=== PATIENT | female | born 1955 | race Caucasian/White ===

== ENCOUNTER 2018-05-05 11:43 | Outpatient (CLI) | payer BC | END 2018-05-05 11:44 | disposition home or self-care (01) | LOC: BICMAMMO 11:43 | PROVIDERS: ATTEND Family Medicine | DX: Z12.31 Encounter for screening mammogram for malignant neoplasm of breast (principal); R92.1 Mammographic calcification found on diagnostic imaging of breast; Z85.3 Personal history of malignant neoplasm of breast; Z80.3 Family history of malignant neoplasm of breast; Z98.890 Other specified postprocedural states | CPT/HCPCS: 77063; 77067 ==

== ENCOUNTER 2019-05-21 07:51 | Outpatient (CLI) | payer BC, OTHER ==
--- NOTE | 2019-05-21 08:38 | MMO ---
Bilateral MAMMO Bilat Screen [facility]. CLINICAL HISTORY: Patient is 64 years old and is seen for screening. The patient has the following family history of breast cancer: 2 sisters. The patient has a history of malignant (generic) in the left breast at age 47. The patient has a history of left Lumpectomy at age 47. VIEWS: The views performed were: bilateral craniocaudal with tomosynthesis and bilateral mediolateral oblique with tomosynthesis. FILMS COMPARED: The present examination has been compared to prior imaging studies performed at [facility] on 10/20/2014, 11/29/2015, 01/27/2017 and 05/05/2018. This study has been interpreted with the assistance of computer-aided detection. MAMMOGRAM FINDINGS: There are scattered fibroglandular densities. Finding 1: There are stable benign appearing calcifications seen in both breasts. Finding 2: There are stable post operative changes seen in the left breast. There are no suspicious masses, suspicious calcifications, or new areas of architectural distortion. IMPRESSION: THERE IS NO MAMMOGRAPHIC EVIDENCE OF MALIGNANCY. A ROUTINE FOLLOW-UP MAMMOGRAM IN 1 YEAR IS RECOMMENDED. THE RESULTS OF THIS EXAM WERE SENT TO THE PATIENT. ACR BI-RADS Category 2 - Benign finding MAMMOGRAPHY NOTE: 1. A negative mammogram report should not delay a biopsy if a dominant of clinically suspicious mass is present. 2. Approximately 10% to 15% of breast cancers are not detected by mammography. 3. Adenosis and dense breasts may obscure an underlying neoplasm. Reported by: YAHAIRA LITTLE MD Electonically Signed: [id number]
== END 2019-05-21 07:52 | disposition home or self-care (01) ==
LOC: BICMAMMO 07:51
PROVIDERS: ATTEND Family Medicine
DX: Z12.31 Encounter for screening mammogram for malignant neoplasm of breast (principal); Z85.3 Personal history of malignant neoplasm of breast; Z80.3 Family history of malignant neoplasm of breast
CPT/HCPCS: 77063; 77067

== ENCOUNTER 2020-05-23 07:47 | Outpatient (CLI) | payer BC ==
--- NOTE | 2020-05-23 08:22 | MMO ---
Bilateral MAMMO Bilat Screen [facility]. CLINICAL HISTORY: Patient is 65 years old and is seen for screening. The patient has the following family history of breast cancer: 2 sisters. The patient has a history of malignant (generic) in the left breast at age 47. The patient has a history of left Lumpectomy at age 47. VIEWS: The views performed were: bilateral craniocaudal with tomosynthesis and bilateral mediolateral oblique with tomosynthesis. FILMS COMPARED: The present examination has been compared to prior imaging studies performed at [facility] on 11/29/2015, 01/27/2017, 05/05/2018 and 05/21/2019. This study has been interpreted with the assistance of computer-aided detection. MAMMOGRAM FINDINGS: The breasts are almost entirely fat. There is a new 10 mm mass density posterior upper outer right breast. In the left breast, there are no suspicious masses, calcifications or areas of architectural distortion. IMPRESSION: FINDING IN THE RIGHT BREAST REQUIRES ADDITIONAL EVALUATION. ADDITIONAL IMAGING. THE RESULTS OF THIS EXAM WERE SENT TO THE PATIENT. ACR BI-RADS Category 0 - Incomplete: Need additional imaging evaluation. [facility] will notify the patient of the need for additional imaging services. MAMMOGRAPHY NOTE: 1. A negative mammogram report should not delay a biopsy if a dominant of clinically suspicious mass is present. 2. Approximately 10% to 15% of breast cancers are not detected by mammography. 3. Adenosis and dense breasts may obscure an underlying neoplasm. Reported by: LIS TODD MD Electonically Signed: [id number]
== END 2020-05-23 07:48 | disposition home or self-care (01) ==
LOC: BICMAMMO 07:47
PROVIDERS: ATTEND Family Medicine
DX: Z08 Encounter for follow-up examination after completed treatment for malignant neoplasm (principal); Z85.3 Personal history of malignant neoplasm of breast
CPT/HCPCS: 77063; 77067

== ENCOUNTER 2020-05-29 07:55 | Outpatient (CLI) | payer BC ==
--- NOTE | 2020-05-29 08:42 | ULT ---
RIGHT BREAST ULTRASOUND: Date: 05/29/2020 HISTORY: Abnormal mammogram of 05/23/2020. Right breast mass. FINDINGS: Sonographic evaluation of the right upper outer breast demonstrates a 1.0 cm hypoechoic solid mass at the 11 o'clock position, 8.0 cm from the nipple, corresponding to the mammographic finding. IMPRESSION: BI-RADS Category 4 - Suspicious abnormality. Ultrasound-guided biopsy is recommended. Discussed in person with the patient at 0820 hours and over the telephone with Dr. Nicanor Mcadams's Eli [facility], at 0826 hours. POS: OFF
--- NOTE | 2020-05-29 09:09 | ULT ---
Exam: Ultrasound guided right breast biopsy HISTORY: Past medical history of left breast cancer. New mass noted on mammography. COMPARISON: Bilateral screening mammogram 2019 2019 FINDINGS: Successful right breast biopsy with ultrasound guidance. A total 4, 14-gauge core biopsy samples were obtained. Samples were placed directly in formalin. Postbiopsy clip was applied. Postbiopsy mammogram demonstrates appropriate clip position TECHNIQUE: Consent obtained to perform a right breast ultrasound guided biopsy. Right breast was prep ped and draped in a sterile fashion. 1% lidocaine, buffered with sodium bicarbonate was used for local anesthesia. Under sonographic guidance, 14-gauge biopsy needle was advanced to the right breast . Total 4 separate 14-gauge core biopsy samples were obtained and placed directly in formalin. Postbiopsy clip was deployed. There are no immediate or postprocedure complications. Postprocedure ma mmogram demonstrates appropriate clip position with associated postbiopsy changes. IMPRESSION: Successful right breast biopsy under ultrasound guidance. Final pathologic diagnosis is p ending
--- NOTE | 2020-05-29 10:23 | MMO ---
FILMS COMPARED: The present examination has been compared to prior imaging studies performed at [facility] on 05/05/2018, 05/21/2019, 05/23/2020 and 05/29/2020. MAMMOGRAM FINDINGS: There is a mass with associated biopsy clip seen in the right breast. IMPRESSION: MASS IN THE RIGHT BREAST IS CONFIRMED UTILIZING POST PROCEDURE MAMMOGRAM. Reported by: ABDOUL CALDWELL MD Electonically Signed: [id number]
== END 2020-05-29 07:56 | disposition home or self-care (01) ==
LOC: BICULT 07:55
PROVIDERS: ATTEND Family Medicine
DX: C50.411 Malignant neoplasm of upper-outer quadrant of right female breast (principal)
CPT/HCPCS: 19083; 88305; 88341; 88342

== ENCOUNTER 2020-06-08 12:20 | Outpatient (CLI) | payer BC ==
[2020-06-08 19:02] LABS: #Basophils 0.1 10x3/uL (0.0-0.2); #Eosinphils 0.4 10x3/uL (0.0-0.5); #Monocytes 0.8 10x3/uL (0.0-1.1); #Neutrophils 5.6 10x3/uL (1.5-8.4); %Basophils 0.8 % (0.0-2.0); %Eosinophils 4.1 % (0.0-6.0); %Monocytes 9.2 % (0.0-10.0); %Neutrophils 64.6 % (40.0-75.0); Mean Corpuscular HGB CONC 33.2 G/DL (32.0-36.0); Mean Corpuscular Hemoglobin 29.1 PG (27.0-33.0); Mean Corpuscular Volume 87.7 fl (80.0-100.0); Mean Platelet Volume 9.8 fl (7.4-10.4); Platelet Count 358 10x3/uL (130-400); RBC Distribution Width 13.5 % (11.5-14.5); Red Blood Cell (RBC) Count 4.46 10x6/uL (3.90-5.20); White Blood Cell (WBC) Count 8.6 10x3/uL (4.5-11.0)
[2020-06-08 19:15] LABS: Anion Gap 14 mmol/L (10-20); BUN (Urea Nitrogen) 17 mg/dL (9.8-20.1); Calc. Creatinine Clearance 0 mL/min (70-130); Calcium 10.5 mg/dL (7.8-10.44); Carbon Dioxide 24 mmol/L (23-31); Chloride 102 mmol/L (98-107); Estimated GFR-MDRD 71; Glucose 88 mg/dL (80-115); Potassium 4.3 mmol/L (3.5-5.1); Sodium 136 mmol/L (136-145)
[2020-06-09 15:25] LABS: SARS-CoV-2 MS2 Positive; SARS-CoV-2 N Gene Negative; SARS-CoV-2 S Gene Negative; SARS-CoV-2 by NAA Not Detected (NotDetected); SARS-CoV-2 orf1ab Negative
--- NOTE | 2020-06-11 20:54 | EKG ---
Test Reason : Blood Pressure : / mmHG Vent. Rate : 071 BPM Atrial Rate : 071 BPM P-R Int : 120 ms QRS Dur : 084 ms QT Int : 396 ms P-R-T Axes : 071 052 063 degrees QTc Int : 430 ms Normal sinus rhythm Normal ECG No previous ECGs available Confirmed by Julieta CASILLAS ([id number]) on 06/11/2020 8:54:21 PM Referred By: DR MCKINLEY Confirmed By:Julieta CASILLAS
== END 2020-06-08 12:21 | disposition home or self-care (01) ==
LOC: LABBT 12:20
PROVIDERS: ATTEND Specialist
DX: Z01.818 Encounter for other preprocedural examination (principal); Z20.828 Contact with and (suspected) exposure to other viral communicable diseases; C50.211 Malignant neoplasm of upper-inner quadrant of right female breast
CPT/HCPCS: 80048; 85025; 87635; 93005; 93010; U0003

== ENCOUNTER 2020-06-12 06:53 | Observation (INO) | payer BC ==
[2020-06-09 15:58] VITALS: BMI 30.8
--- NOTE | 2020-06-12 08:53 | NM ---
LYMPHOSCINTIGRAPHY RIGHT BREAST: DATE: 06/12/2020 : 65-year-old female with malignant neoplasm of upper outer quadrant of right female breast. TECHNIQUE: Signed informed consent obtained. Alcohol swabbing four-quadrant right periareolar distribution. Usin g 30-gauge needle, buffered lidocaine was applied to those 4 quadrants. Next, using 4 separate 30-gauge needles in 4 separate tuberculin syringes, a total of 0.4 mCi of technetium 99m sulfur collo id was injected into those same 4 periareolar quadrants. Immediate anterior and lateral scintigraphic images obtained of the chest. Patient tolerated procedure well. No complications. FINDINGS: There is uptake in sentinel right lymph node, plus additional right axillary and internal mammary lym ph nodes.. IMPRESSION: Successful right breast lymphoscintigraphy
[2020-06-12] MEDS ORDERED: Isosulfan Blue 50 MG/5 ML VIAL ONE (10:20)
[2020-06-12] MEDS ORDERED: Bupivacaine 0.25% HCL 30 ML VIAL ONE (10:20)
[2020-06-12] MEDS ORDERED: Lidocaine 1% w/Epinephrine 1:100K 20 ML VIAL ONE (10:20)
[2020-06-12] MEDS ORDERED: Fentanyl 100 MCG/2 ML VIAL ONE (11:01)
[2020-06-12] MEDS ORDERED: SUGAMMADEX SODIUM 500 MG/5 ML VIAL ONE (11:02)
[2020-06-12] MEDS ORDERED: HYDROmorphone 0.5 MG/0.5 ML SYRINGE ONE (11:02)
[2020-06-12] MEDS ORDERED: Acetaminophen 500 MG TAB ONE (11:12)
[2020-06-12] MEDS ORDERED: Ketorolac Tromethamine 30 MG/ML VIAL ONE (11:12)
[2020-06-12] MEDS ORDERED: PROPOFOL 200 MG/20 ML VIAL ONE (12:13)
[2020-06-12] MEDS ORDERED: Dexamethasone 20 MG/5 ML VIAL ONE (12:13)
[2020-06-12] MEDS ORDERED: EPHEDRINE 25 MG/5 ML SYRINGE ONE (12:13)
[2020-06-12] MEDS ORDERED: Glycopyrrolate 0.2 MG/ML 5 ML SYRINGE ONE (12:13)
[2020-06-12] MEDS ORDERED: PHENYLEPHRINE-NS 100 MCG/ML 10 ML SYRINGE ONE (12:13)
[2020-06-12] MEDS ORDERED: Ondansetron PF 4 MG/2 ML Vial ONE (12:13)
[2020-06-12] MEDS ORDERED: Lidocaine 1% PF 5 ML VIAL ONE (12:13)
[2020-06-12] MEDS ORDERED: PACU-Morphine 4MG/ML VIAL SLOW IVP PRN (16:08)
[2020-06-12] MEDS ORDERED: Promethazine HCl 25 MG/ML VIAL IM PRN ×2 (16:08→17:29)
[2020-06-12] MEDS ORDERED: Ondansetron HCl/PF 4 MG/2 ML Vial IVP PRN (16:08)
[2020-06-12] MEDS ORDERED: Promethazine HCl 25 MG/ML VIAL SLOW IVP PRN (16:08)
[2020-06-12] MEDS ORDERED: Meperidine HCl/PF 25 MG/ML VIAL SLOW IVP PRN (16:08)
[2020-06-12] MEDS ORDERED: Morphine Sulfate 2 MG/ML SYRINGE SLOW IVP PRN (16:08)
[2020-06-12] MEDS ORDERED: HYDROmorphone 2 MG/ML VIAL SLOW IVP PRN (16:08)
[2020-06-12] MEDS ORDERED: Morphine 2 MG/ML VIAL SLOW IVP PRN (17:29)
[2020-06-12] MEDS ORDERED: Morphine 4 MG/ML VIAL SLOW IVP PRN (17:29)
[2020-06-12] MEDS ORDERED: Dextrose 5% in Water 1,000 ML IV PRN (17:29)
[2020-06-12] MEDS ORDERED: Ondansetron PF 4 MG/2 ML Vial IVP PRN (17:29)
[2020-06-12] MEDS ORDERED: hydrALAZINE 20 MG/ML VIAL SLOW IVP PRN (17:29)
[2020-06-12] MEDS ORDERED: Dextrose 50% Abboject 50 ML SYRINGE SLOW IVP PRN (17:29)
[2020-06-12] MEDS ORDERED: HYDROcodone/Acetaminophen 7.5/325 mg Tablet PO PRN ×2 (17:29)
[2020-06-12] MEDS: D5 1/2 NS w/20 mEq KCL 1,000 ML IV SCH (18:09)
[2020-06-12] MEDS ORDERED: Acetaminophen 500 MG TAB PO PRN (21:21)
[2020-06-12] MEDS: Famotidine 20 MG TAB PO SCH (21:35)
[2020-06-13 05:33] LABS: #Lymphocytes 0.9 thou/uL (1.20-3.40); #Neutrophils 12.2 thou/uL (1.40-6.50); %Eosinophils 0.1 % (0.0-10.0); %Lymphocytes 6.3 % (21.0-51.0); %Monocytes 6.8 % (0.0-10.0); %Neutrophils 86.8 % (42.0-75.0); Hemoglobin 10.6 g/dL (12.0-16.0); Mean Corpuscular HGB CONC 32.9 g/dL (32.0-36.0); Mean Corpuscular Hemoglobin 30.1 pg (27.0-31.0); Mean Corpuscular Volume 91.6 fL (78.0-98.0); Mean Platelet Volume 7.3 fL (7.4-10.4); Platelet Count 286 thou/uL (130-400); Red Blood Cell (RBC) Count 3.52 mill/uL (4.20-5.40); White Blood Cell (WBC) Count 14.1 thou/uL (4.8-10.8)
[2020-06-13 05:55] LABS: Anion Gap 10 mmol/L (10-20); BUN (Urea Nitrogen) 14 mg/dL (9.8-20.1); Calc. Creatinine Clearance 96 mL/min (70-130); Calcium 9.4 mg/dL (7.8-10.44); Carbon Dioxide 23 mmol/L (23-31); Chloride 105 mmol/L (98-107); Estimated GFR-MDRD 78; Glucose 187 mg/dL (80-115); Potassium 4.4 mmol/L (3.5-5.1); Sodium 134 mmol/L (136-145)
[2020-06-13] MEDS: Famotidine 20 MG TAB PO SCH (07:58)
[2020-06-13] MEDS: D5 1/2 NS w/20 mEq KCL 1,000 ML IV SCH (07:59)
[2020-06-13 08:20] VITALS: BP 99/62; TEMP 97.7
[2020-06-13] MEDS ORDERED: Venlafaxine HCl XR 75 MG CAP PO SCH (09:00)
[2020-06-13] MEDS ORDERED: Prevnar 13-Val Conj/PF 0.5 ML SYRINGE IM ONE (09:00)
--- NOTE | 2020-06-14 14:54 | OP ---
DATE OF PROCEDURE: 06/12/2020 PREOPERATIVE DIAGNOSES: Right breast cancer, history of prior left breast cancer, BRCA positive. POSTOPERATIVE DIAGNOSES: Right breast cancer, history of prior left breast cancer, BRCA positive. PROCEDURES PERFORMED: Bilateral mastectomy with right axillary sentinel lymph node biopsy and left subclavian standard-sized power compatible MediPort placement. ANESTHESIA: General endotracheal. INDICATIONS: The patient is a 65-year-old white female. She has a history of prior left breast cancer. Apparently sometime in the past, she was diagnosed as being BRCA positive, but this was not addressed medically. She recently was found to have a new right breast cancer. After discussing options with the patient, even before we recognized that she was BRCA positive, she had felt that she wanted to proceed with bilateral mastectomy. She was not interested in reconstruction. MediPort placement was requested for chemotherapy administration. DESCRIPTION OF OPERATION: Informed consent was obtained. Lymphoscintigraphy was performed on the right breast revealing right axillary sentinel lymph nodes. She was taken to the operating room, where general endotracheal anesthesia was obtained with the patient in supine position. Bilateral breasts and axilla were prepped with ChloraPrep and draped in sterile fashion. 3 mL of Lymphazurin was infiltrated into the right subdermal periareolar tissue and massaged for 5 minutes. Attention was turned to the left chest wall. Large gauge needle was passed under the clavicle in the subclavian vein and guidewire was passed through the needle. A transverse incision was created based on needle insertion site and subcutaneous pocket was dissected. Introducer dilator was passed over the guidewire and catheter was passed through the introducer, which was removed in the usual peel-apart fashion. Fluoroscopy was used throughout this procedure. The catheter was trimmed to appropriate length and secured to the locking hub of the MediPort. The port was secured to pectoral fascia with 3-0 Prolene suture. The wound was closed in layers with 3-0 and 4-0 Monocryl and Dermabond was placed externally. Attention was then turned to the right breast. An elliptical mastectomy incision was created extending from the sternum to the inferior aspect of the axilla. All dissection was carried out with the plasma blade. Attention was turned to the lateral aspect, where flaps were raised on the superior and inferior and lateral aspects. Dissection was carried into the axilla. Neoprobe was utilized to identify areas of maximum radio intensity. Three separate sentinel lymph nodes were identified, dissected circumferentially, and removed. Since these were associated with the mastectomy, touch prep was obtained intraoperatively, which was negative. All lymphatics investing the nodes were divided between clamps and 3-0 silk ties. Attention was then turned to the left breast. An elliptical mastectomy incision was created. Flaps were raised superiorly, inferiorly, and medially down to the chest wall maintaining appropriate adipo-dermal flap. The breast was swept off the chest wall in a medial to lateral fashion. At the lateral aspect of the pectoralis, the dissection was completed without entering the axilla. The breast was tagged for orientation with suture and passed off the field. Meticulous hemostasis was obtained with the electrocautery. The skin flaps were carefully tailored to remove redundancy. A #19 round fluted drain was placed within the wound and brought out laterally and inferiorly, where it was secured with 3-0 nylon suture. The incision was then closed with a running suture of 3-0 Vicryl and skin edges approximated with skin kathy. Attention was then turned to the right breast. The initial mastectomy incision had already been created. The flaps were completed on the superior, medial, and inferior aspects down to the chest wall. The breast was swept off the chest wall in a medial to lateral fashion. Since the sentinel lymph nodes were negative, no attempt was made to dissect further within the axilla. There was noted to be at least one sentinel lymph node still within the axillary tail and this was tagged with a suture. The breast was tagged for orientation and submitted to pathology. As I was tailoring the skin flaps, I removed an additional skin margin from the superior aspect, which I submitted as an additional margin. At no point did I encounter a malignancy that left me concern regarding margins. Meticulous hemostasis was again obtained and the wound was irrigated with sterile water. A drain was placed within the wound and brought out laterally and inferiorly and secured with 3-0 nylon. Skin edges were approximated with 3-0 Vicryl and skin kathy. A Xeroform gauze followed by fluffed gauze and SilversteinWrap dressing was applied. Sterile occlusive dressings were placed over both drain exit sites. There were no complications. The patient tolerated the procedure well and was taken to recovery room in stable condition. Job ID: [id number]
== END 2020-06-13 10:31 | disposition home or self-care (01) ==
LOC: SDC 06:53 → INTOOBSV 16:17 → SURG A 16:17
PROVIDERS: ADMIT Specialist; ATTEND Specialist
PROC: 0HBV0ZZ Excision of Bilateral Breast, Open Approach (ICD-10-PCS; principal; 2020-06-12)
PROC: 07B50ZZ Excision of Right Axillary Lymphatic, Open Approach (ICD-10-PCS; 2020-06-12)
PROC: 02HV33Z Insertion of Infusion Device into Superior Vena Cava, Percutaneous Approach (ICD-10-PCS; 2020-06-12)
DX: C50.111 Malignant neoplasm of central portion of right female breast (principal); N60.32 Fibrosclerosis of left breast; F32.9 Major depressive disorder, single episode, unspecified; K21.9 Gastro-esophageal reflux disease without esophagitis; E66.9 Obesity, unspecified; Z68.30 Body mass index [BMI] 30.0-30.9, adult; Z17.1 Estrogen receptor negative status [ER-]; Z79.899 Other long term (current) drug therapy
CPT/HCPCS: 36415; 78195; 80048; 85025; 88305; 88307; 88309; 88333; 88334; 88342; 90471; 90670; 96374; A9541; C1788; G0009; G0378; J0690; J1100; J1170; J1642; J1885; J2405; J2704; J3010; J3480; Q9968; S0020

== ENCOUNTER 2022-03-12 08:23 | Outpatient (CLI) | payer BC ==
[2022-03-12] MEDS ORDERED: Magnevist 469MG/ML 20 ML VIAL ONE (09:34)
== END 2022-03-12 08:24 | disposition home or self-care (01) ==
LOC: MRI 08:23
PROVIDERS: ATTEND Internal Medicine Hematology & Oncology
DX: C50.919 Malignant neoplasm of unspecified site of unspecified female breast (principal); Z15.01 Genetic susceptibility to malignant neoplasm of breast; Z80.0 Family history of malignant neoplasm of digestive organs
CPT/HCPCS: 74183; 82565; A9579

== ENCOUNTER 2023-07-25 11:14 | Outpatient (CLI) | payer BC | END 2023-07-25 11:15 | disposition home or self-care (01) | LOC: BICMAMMO 11:14 | PROVIDERS: ATTEND Internal Medicine Endocrinology, Diabetes & Metabolism | DX: M81.0 Age-related osteoporosis without current pathological fracture (principal); M85.89 Other specified disorders of bone density and structure, multiple sites | CPT/HCPCS: 77080 ==

== ENCOUNTER 2024-07-13 06:56 | Outpatient (CLI) | payer BC | END 2024-07-13 06:57 | disposition home or self-care (01) | LOC: BICULT 06:56 | DX: R31.9 Hematuria, unspecified (principal) | CPT/HCPCS: 76700; 76856 ==

== ENCOUNTER 2025-03-11 14:33 | Outpatient (CLI) | payer BC | END 2025-03-11 14:34 | disposition home or self-care (01) | LOC: BICULT 14:33 | PROVIDERS: ATTEND Urology | DX: N20.0 Calculus of kidney (principal) | CPT/HCPCS: 76770 ==

== ENCOUNTER 2025-04-26 13:13 | Outpatient (CLI) | payer BC | END 2025-04-26 13:14 | disposition home or self-care (01) | LOC: MRI 13:13 | PROVIDERS: ATTEND Internal Medicine Hematology & Oncology | DX: C50.919 Malignant neoplasm of unspecified site of unspecified female breast (principal); K76.89 Other specified diseases of liver | CPT/HCPCS: 36415; 74183; 82565 ==